=== PATIENT | female | born 1975 | race Asian ===

== ENCOUNTER 2025-05-04 02:16 | Emergency (ER) | payer BC ==
[~2025-05-04] VITALS: Ht 153 cm; Wt 63.6 kg
[2025-05-04 02:36] VITALS: TEMP 98.8
[2025-05-04 02:56] LABS: PLATELET COUNT (AUTO) 247 K/uL (150-450); RED BLOOD CELL COUNT(AUTO) 4.65 MIL/uL (4.00-5.20); RED CELL DISTRIBUTION WIDTH 12.9 % (11.5-14.5); WHITE BLOOD COUNT (AUTO) 10.9 K/uL (4.5-11.0)
[2025-05-04 03:06] LABS: CALCIUM, TOTAL 9.0 mg/dL (8.8-10.5); CREATININE 0.87 mg/dL (0.60-1.30); GLOMERULAR FILTR. RATE CALC > 60 mL/min (>60); GLUCOSE,RANDOM 107 mg/dL (70-110); SODIUM SERUM 141 mmol/L (136-145); UREA NITROGEN, BLOOD 10 mg/dL (7-18)
[2025-05-04 03:07] LABS: APPEARANCE,URINE CLEAR (CLEAR); GLUCOSE, URINE (UA) NEGATIVE (NEGATIVE); LEUKOCYTE ESTERASE ,URINE MODERATE (NEGATIVE); NITRATE,URINE NEGATIVE (NEGATIVE); OCCULT BLOOD,URINE LARGE (NEGATIVE); SPECIFIC GRAVITIY, URINE 1.004 (1.003-1.030)
[2025-05-04 03:17] LABS: TROPONIN I-HIGH SENSITIVITY 7 ng/L (<51)
[2025-05-04 03:21] LABS: HCG,QUAL URINE NEGATIVE (NEGATIVE); SQUAMOUS EPITHELIAL CELL,UR Few /LPF (None Seen); SULFOSALICYLIC ACID,URINE 2+ (Negative)
[2025-05-04 04:40] VITALS: BP 150/72; PULSE 81; RESP 16; O2SAT 96
[2025-05-04] MEDS ORDERED: CEPH-558 PO (04:53)
[2025-05-04] MEDS: HYDROCODONE/ACETAMINOPHEN 5-325 MG TABLET PO ONE (04:57)
[2025-05-04] MEDS: CEPHALEXIN MONOHYDRATE 500 MG CAPSULE PO ONE (04:57)
== END 2025-05-04 05:01 | disposition home or self-care (01) ==
LOC: EMS 02:17
DX: N39.0 Urinary tract infection, site not specified (principal); R31.9 Hematuria, unspecified; R07.9 Chest pain, unspecified
CPT/HCPCS: 80048; 81001; 81002; 83690; 84484; 84703; 85025; 93005; 99284